=== PATIENT | male | born 1995 ===

== ENCOUNTER 2018-10-27 19:47 | Emergency (ER) | payer OTHER ==
[2018-10-27 19:58] VITALS: BP 109/69
--- NOTE | 2018-10-27 21:09 | UC ---
Skin Complaint HPI - HPI Summary HPI Summary: 23-year-old male comes in with a chief complaint of a laceration to his left thumb. This occurred just prior to arrival at work. He works in a kitchen. The cut was caused by attempting to grab a knife as it was falling off a table. Bleeding stopped with direct pressure. Patient reports his tetanus is up-to- date. No complaint of loss of sensation or range of motion and strength. - History of Current Complaint Chief Complaint: UCLaceration Time Seen by Provider: 10/27/18 20:53 Stated Complaint: FINGER LAC Pain Intensity: 4 - Allergy/Home Medications Allergies/Adverse Reactions: Allergies Allergy/AdvReac Type Severity Reaction Status Date / Time No Known Allergies Allergy Verified 10/27/18 19:56 Home Medications: Home Medications NK [No Home Medications Reported] 10/27/18 [History Confirmed 10/27/18] PMH/Surg Hx/FS Hx/Imm Hx Previously Healthy: Yes - Surgical History Surgical History: None - Family History Known Family History: Positive: Non-Contributory - Social History Alcohol Use: None Substance Use Type: None Smoking Status (MU): Never Smoked Tobacco Review of Systems All Other Systems Reviewed And Are Negative: Yes Constitutional: Positive: Negative Skin: Positive: Other - SEE HPI Eyes: Positive: Negative ENT: Positive: Negative Respiratory: Positive: Negative Cardiovascular: Positive: Negative Gastrointestinal: Positive: Negative Motor: Positive: Negative Neurovascular: Positive: Negative Musculoskeletal: Positive: Negative Neurological: Positive: Negative Psychological: Positive: Negative Is Patient Immunocompromised?: No Physical Exam Triage Information Reviewed: Yes Appearance: Well-Appearing, No Pain Distress, Well-Nourished Vital Signs: Initial Vital Signs Temp 97.0 F 10/27/18 19:53 Pulse 70 10/27/18 19:53 Resp 20 10/27/18 19:53 BP 109/69 10/27/18 19:53 Pulse Ox 99 10/27/18 19:53 Vital Signs Reviewed: Yes Eye Exam: Normal Eyes: Positive: Conjunctiva Clear Neck: Positive: Supple Respiratory: Positive: No respiratory distress Musculoskeletal: Positive: Strength Intact, ROM Intact Neurological: Positive: Alert Psychological: Positive: Age Appropriate Behavior Skin: Positive: Other - On the tip of the left thumb there is a flap laceration that is elliptical 1 cm in length. The flap is being held on by a small piece of skin but the flap after cleaning it does cover the evulsion laceration. There is no active bleeding. Laceration Repair - Laceration Repair 1 Procedure Summary: Tip of left thumb flap evulsion laceration 1 cm in length. Laceration Size After Repair: Length (cm) - 1CM Modified For Repair: No Irrigation With Pressure Irrigation Device: Yes Closure Material: Skin Adhesive Course/Dx - Course Course Of Treatment: The flap of skin over the top of the evulsion laceration after cleaning was in place and no active bleeding. Therefore I glued the flap down. Dressing placed by nursing. Patient reports is up-to-date with his tetanus. Get reevaluated if any signs of infection or any other concerns. - Diagnoses Provider Diagnosis: Laceration of left thumb Discharge ED - Sign-Out/Discharge Documenting (check all that apply): Patient Departure All imaging exams completed and their final reports reviewed: No Studies - Discharge Plan Condition: Stable Disposition: HOME Patient Education Materials: Finger Laceration (ED), Skin Adhesive Care (ED) Referrals: [facility] [Provider Group] Additional Instructions: FOLLOW UP WITH YOUR DOCTOR IF NOT COMPLETELY IMPROVED. GET RECHECKED SOONER IF YOUR CONDITION WORSENS; SIGNS OF INFECTION OR ANY QUESTIONS OR CONCERNS. - Billing Disposition and Condition Condition: STABLE Disposition: Home
== END 2018-10-27 21:23 | disposition home or self-care (01) ==
LOC: UCEAST 19:47
DX: S61.012A Laceration without foreign body of left thumb without damage to nail, initial encounter (principal); W26.0XXA Contact with knife, initial encounter; Y93.89 Activity, other specified; Y92.89 Other specified places as the place of occurrence of the external cause; Y99.0 Civilian activity done for income or pay
CPT/HCPCS: 99202; G0463